=== PATIENT | male | born 1950 | race African-American/Black ===

== ENCOUNTER 2018-12-27 16:11 | Emergency (ER) | payer MEDICARE, OTHER ==
[~2018-12-27] VITALS: Ht 185.4 cm; Wt 79.4 kg
[2018-12-27 16:14] VITALS: BP 126/87
--- NOTE | 2018-12-27 16:14 | NUR ---
ED Nurse Note: Pt CHRISTIANO from home after his called ambulance for heroin overdose. Pt AAO x4 and denying substance overdose as stating "I don't want to be here. I did not take anything!!" Pt vomited x2 in bed. Pt diaphoretic but skin intact. Pt is refusing to be on monitor.
--- NOTE | 2018-12-27 16:20 | NUR ---
ED Nurse Note: Pt agreed with being on monitor but continuously saying "I don't want to be here. I will go home. I am fine." VSS but pt has chills and diaphoretic. Pt suggested to stay and get checked.
[2018-12-27] MEDS ORDERED: TIVICAY50 MG ORAL (16:40)
[2018-12-27] MEDS ORDERED: ATORVASTATIN CA20 MG ORAL (16:40)
[2018-12-27] MEDS ORDERED: LISINOPRIL30 MG ORAL (16:40)
[2018-12-27] MEDS ORDERED: VITAMIN D400 INTLU ORAL (16:40)
[2018-12-27] MEDS ORDERED: METFORMIN HCL500 M1 ORAL (16:40)
[2018-12-27] MEDS ORDERED: LEVOTHYROXINE75 MCG ORAL (16:40)
[2018-12-27] MEDS ORDERED: QUETIAPINE FUM200 MG ORAL (16:40)
[2018-12-27] MEDS ORDERED: EMTRIVA200 MG ORAL (16:40)
--- NOTE | 2018-12-27 16:45 | NUR ---
ED Nurse Note: Pt insisted to go home AMA. Pt spoke to the MD and signed on consent. Pt AAO x4. ID band removed. Pt put his closthes on and ambulated to go home AMA.
[2018-12-27 16:54] VITALS: BP 126/86
--- NOTE | 2018-12-29 07:25 | Emergency Room Report ---
History of Present Illness General Chief Complaint: Substance Abuse Source: Patient, EMS Present Illness HPI 68-year-old male presents ED for evaluation. Patient brought in by EMS for reported overdose. Apparently used heroin at home today. Upon arrival patient is awake alert oriented 3. Admits to heroine use. Denies any other drug use. Denies alcohol use. Denies SI or HI. Denies hearing voices. No other aggravating relieving factors. Denies any other associated symptoms Allergies: Coded Allergies: No Known Allergies (Unverified , 12/27/18) Patient History Past Medical History: HTN Past Surgical History: none Pertinent Family History: none Social History: Reports: drug use; Denies: smoking, alcohol use Immunizations: UTD Reviewed Nursing Documentation: PMH: Agreed; PSxH: Agreed Nursing Documentation-PMH Hx Hypertension: Yes Hx Diabetes: Yes Review of Systems All Other Systems: negative except mentioned in HPI Physical Exam Vital Signs Date Time Temp Pulse Resp B/P (MAP) Pulse Ox O2 Delivery O2 Flow Rate FiO2 12/27/18 16:05 98.2 76 18 126/68 98 Room Air 12/27/18 16:14 94 Sp02 EP Interpretation: reviewed, normal General Appearance: no apparent distress, alert, GCS 15, non-toxic Head: normocephalic, atraumatic Eyes: bilateral eye normal inspection, bilateral eye PERRL ENT: hearing grossly normal, normal pharynx, no angioedema, normal voice Neck: full range of motion, supple/symm/no masses Respiratory: chest non-tender, lungs clear, normal breath sounds, speaking full sentences Cardiovascular #1: regular rate, rhythm, no edema Cardiovascular #2: 2+ carotid (R), 2+ carotid (L), 2+ radial (R), 2+ radial (L) , 2+ dorsalis pedis (R), 2+ dorsalis pedis (L) Gastrointestinal: normal bowel sounds, non tender, soft, non-distended, no guarding, no rebound Rectal: deferred Genitourinary: normal inspection, no CVA tenderness Musculoskeletal: back normal, gait/station normal, normal range of motion, non- tender Neurologic: alert, oriented x3, responsive, motor strength/tone normal, sensory intact, speech normal Psychiatric: judgement/insight normal, memory normal, mood/affect normal, no suicidal/homicidal ideation Reflexes: 3+ bicep (R), 3+ bicep (L), 3+ tricep (R), 3+ tricep (L), 3+ knee (R) , 3+ knee (L) Skin: normal color, no rash, warm/dry, well hydrated Lymphatic: no adenopathy Medical Decision Making Diagnostic Impression: Primary Impression: Substance abuse ER Course Hospital Course 68-year-old male presents to ED status post heroin overdose. AAOx3 here Clinical course Patient placed on stretcher. Initial history, physical exam reveals an elderly male in no acute distress. Awake alert oriented 3. Lungs clear. Vital stable. I recommended that patient be observed here on monitor for some time. Patient states he wants to leave Patient states she wishes to go home. Understands the risks of leaving. Patient has competency to make her own decisions. Signed AMA form. Diagnosis - substance abuse patient left AMA Last Vital Signs Date Time Temp Pulse Resp B/P (MAP) Pulse Ox O2 Delivery O2 Flow Rate FiO2 12/27/18 16:54 97.3 88 20 126/86 94 Room Air 12/27/18 16:14 94 Status: improved Disposition: AGAINST MEDICAL ADVICE Condition: Unknown Referrals: NOT CHOSEN IPA/,REFERRING (PCP) Sandoval Arroyo MD Dec 29, 2018 07:24
== END 2018-12-27 16:54 | disposition left against medical advice (07) ==
LOC: EDBD 16:11 → EMR 16:50
DX: F11.10 Opioid abuse, uncomplicated (principal); I10 Essential (primary) hypertension; E11.9 Type 2 diabetes mellitus without complications
CPT/HCPCS: 99282